=== PATIENT | male | born 1950 | race Caucasian/White ===

== ENCOUNTER 2016-10-02 10:54 | Day surgery (SDC) | payer MEDICARE, OTHER ==
[~2016-10-02] VITALS: Ht 177.8 cm; Wt 77.1 kg
[~2016-10-02 10:54] MED LIST: ASPI-973 PO; BUPR-97 PO; CALC625T76 PO; DICY10CA56 PO; MULT-1073 PO; POLY17PO6 PO; SERT50TA9 PO; SODI354S PO; Sodium Chloride LOK Flush 10 mL Syringe IV PRN; fentaNYL-PF 50 mCg/mL 2 mL Inj IVPUSH PRN
[2016-10-02 11:08] VITALS: BP 130/74; PULSE 65; RESP 17; O2SAT 97
[2016-10-02] MEDS ORDERED: DICY10CA56 PO (11:13)
[2016-10-02] MEDS: 0.9% Sodium Chloride 1,000 ML IV SCH ×3 (11:20→12:01)
[2016-10-02 12:07] VITALS: BP 110/69; PULSE 59; RESP 16; O2SAT 95
--- NOTE | 2016-10-02 12:18 | ENDO ---
[address] [address] ENDOSCOPY PROCEDURE PATIENT: BENJIE FRANK : 1950 MR#: [id number] ADMIT: 10/02/2016 JOB ID: [id number] PROCEDURE: Colonoscopy. INDICATION: Screening. ANESTHESIA: Patient's ASA classification is two. Mallampati score is two. MEDICATIONS: 1. Versed 3 mg. 2. Fentanyl 100 mcg. INSTRUMENT USED: PCF H 180 AL. PREPARATION QUALITY: Fair. PROCEDURE DETAILS: After informed consent was obtained, the patient was brought into the GI suite, where he was placed on oxygen via nasal cannula and monitored with continuous pulse oximeter, telemetry, and blood pressure monitoring. A time-out was performed, then he was placed in the left lateral decubitus position and medications were administered for sedation. Digital rectal exam was performed with palpation of the prostate which was unremarkable. The colonoscope was then inserted into the rectum and advanced under direct visualization to the cecum, which was identified by the presence of the ileocecal valve and appendiceal orifice. Once the cecum was reached, the colonoscope was withdrawn back into the rectum as the mucosa and lumen were examined. In the rectum, retroflexion was performed. Following retroflexion, the remaining air in the rectum was suctioned and the procedure was completed. FINDINGS: In the transverse colon there was an approximately 4 mm sessile polyp that was removed with a cold snare. The remainder of the colon was otherwise unremarkable. IMPRESSION: Transverse colon polyp. RECOMMENDATIONS: Repeat colonoscopy pending polyp pathology results. COMPLICATIONS: None. ESTIMATED BLOOD LOSS: Less than 5 mL.
[2016-10-02 12:23] VITALS: BP 126/76; PULSE 62; RESP 16; O2SAT 96
--- NOTE | 2016-10-03 11:18 | PATH ---
SURGICAL PATHOLOGY Attending Physician:Faustino Brooks CASE STATUS: Signed Out PATIENT NAME: BENJIE FRANK PID: [id number] : 1950 DATE COLLECTED:10/02/2016 19:57 SPECIMEN: Colon, Biopsy CLINICAL HISTORY: TRANSVERSE COLON POLYP FINAL DIAGNOSIS: Transverse Colon Polyp: Tubular adenoma. ICD10 D12.3 GROSS DESCRIPTION: The specimen is received in one formalin filled container labeled with the patient's name, sublabeled "transverse colon polyp" and consists of a 0.2 x 0.2 x 0.2 CM portion of tissue which is entirely submitted in one cassette. 10/02/2016 [facility] ICD-9 CODES: CPT CODES: 1: 45817 Electronically Signed Out Jonathon Rosen MD [facility] Pathology [facility] [address], [place] [address] Technical component performed at [facility], [facility] [address], [place], [address]
== END 2016-10-02 23:59 | disposition home or self-care (01) ==
LOC: END 10:54
PROVIDERS: ATTEND Internal Medicine Gastroenterology
DX: Z12.11 Encounter for screening for malignant neoplasm of colon (principal); D12.3 Benign neoplasm of transverse colon; F32.9 Major depressive disorder, single episode, unspecified; F41.9 Anxiety disorder, unspecified; Z79.82 Long term (current) use of aspirin
CPT/HCPCS: 45385; 88305; 99153; G0500; J2250; J7030